=== PATIENT | male | born 1955 | race African-American/Black ===

== ENCOUNTER 2020-06-13 20:15 | Emergency (ER) | payer OTHER ==
--- NOTE | 2020-06-13 21:32 | ULT ---
LEFT LOWER EXTREMITY DOPPLER VENOUS ULTRASOUND PROVIDED CLINICAL HISTORY: Left lower extremity pain and edema for 2 days TECHNIQUE: Grayscale and color Doppler sonography with spectral analysis was performed of the left common femora l, femoral, popliteal, posterior tibial, greater saphenous and profunda femoral veins. FINDINGS: There is normal compression, flow and augmentation seen within the deep venous structures o f the left lower extremity. IMPRESSION: No sonographic evidence for left lower extremity deep venous thrombosis.
== END 2020-06-13 21:40 ==
LOC: ERS 20:15
DX: M79.662 Pain in left lower leg (principal); I10 Essential (primary) hypertension; E78.5 Hyperlipidemia, unspecified; N40.0 Benign prostatic hyperplasia without lower urinary tract symptoms; Z79.899 Other long term (current) drug therapy; Z79.82 Long term (current) use of aspirin